=== PATIENT | male | born 1970 | race Caucasian/White ===

== ENCOUNTER 2017-06-11 14:58 | Inpatient (IN) | payer MEDICARE, MEDICAID ==
[~2017-06-11] VITALS: Ht 165.1 cm; Wt 107.4 kg
[2017-06-11] MEDS ORDERED: LEVOFLOXACIN 250MG 50 ML IV ONE (16:00)
[2017-06-11] MEDS ORDERED: MORPHINE SULFATE 4 MG/ML SYR/VIAL IV PRN (16:00)
[2017-06-11] MEDS ORDERED: B-COMPLEX W/ C & FOLIC ACID(NEPHROVITE TAB) PO ONE (16:00)
[2017-06-11] MEDS ORDERED: NITROGLYCERIN 0.4 MG SL TAB SL PRN (16:00)
[2017-06-11] MEDS ORDERED: ONDANSETRON HCL 4 MG/2 ML VIAL IV PRN (16:00)
[2017-06-11 16:19] LABS: Basophils # (auto) 0.1 uL; Eosinophils # (auto) 0.6 uL; Eosinophils % (auto) 8.8 % (0.0-7.0); Neutrophils # (auto) 3.6 uL; White Blood Cell 6.3 10^3/uL (4.4-10.8)
[2017-06-11 16:21] LABS: Hematocrit 23.7 % (41.0-53.0); Hemoglobin 7.7 g/dL (13.5-17.5); Lymphocytes # (auto) 1.2 uL; Lymphocytes % (auto) 18.9 % (10.0-50.0); Mean Corpuscular Hemoglobin 31.3 pg (28.0-32.0); Mean Corpuscular Hgb Conc. 32.5 g/dL (32.0-36.0); Mean Corpuscular Volume 96.2 fL (80.0-100.0); Monocytes # (auto) 0.8 uL; Neutrophils % (auto) 57.3 % (37.0-80.0); Platelet Count (auto) 353 10^3/uL (140-450); Red Blood Cells 2.46 10^6/uL (4.5-5.90); Red Cell Distribution Width 18.2 % (11.8-14.3)
[2017-06-11 16:28] LABS: Albumin 2.2 g/dL (3.4-5.0); Magnesium 2.2 mg/dL (1.6-2.6)
[2017-06-11 16:36] LABS: BUN/Creatinine Ratio 8.2; Bilirubin, Total 0.4 mg/dL (0.2-1.0); Total Protein 7.1 g/dL (6.4-8.2)
[2017-06-11 16:44] LABS: Potassium 6.2 mmol/L (3.5-5.1)
[2017-06-11 16:49] LABS: Hepatitis B Surface Antigen Negative (Negative)
[2017-06-11] MEDS ORDERED: SODIUM BICARBONATE 8.4 % INJ 50ML VIAL IV ONE (17:00)
[2017-06-11] MEDS ORDERED: CALCIUM GLUC 4.65meq/50ml D5AE 50 ML IV ONE (17:00)
[2017-06-11] MEDS ORDERED: InsuLIN REG 1unit/0.01ml Soln (100units/ml) IV ONE (17:00)
[2017-06-11] MEDS ORDERED: DEXTROSE (50%) 50ML SYRG IV ONE (17:00)
[2017-06-11 17:17] LABS: Hepatitis B Core IgM Negative; Hepatitis C Antibody Negative (Negative)
[2017-06-11 17:19] LABS: Hepatitis A Ab IgM Negative
[2017-06-11] MEDS ORDERED: EPOETIN ALFA 10,000 UNIT/1 ML VIAL IV ONE (18:15)
[2017-06-11] MEDS: CALCIUM ACETATE 667 MG CAP PO SCH (18:29)
[2017-06-11 18:45] VITALS: BP 139/56
[2017-06-11 19:45] VITALS: BP 121/78
[2017-06-11 21:37] VITALS: BP 100/59
[2017-06-11] MEDS: METOPROLOL TARTRATE 50 MG TAB PO SCH (22:00)
[2017-06-12] MEDS ORDERED: traZODone HCL 50 MG TAB PO ONE (00:30)
[2017-06-12 04:52] VITALS: BP 112/53
[2017-06-12 06:26] LABS: Basophils # (auto) 0.1 uL; Eosinophils # (auto) 0.4 uL; Hemoglobin 7.4 g/dL (13.5-17.5); Lymphocytes # (auto) 1.1 uL; Mean Corpuscular Hemoglobin 31.8 pg (28.0-32.0); Mean Corpuscular Hgb Conc. 33.2 g/dL (32.0-36.0); Neutrophils # (auto) 2.5 uL; Nucleated Red Blood Cells % 0.1 %; White Blood Cell 4.8 10^3/uL (4.4-10.8)
[2017-06-12 06:28] LABS: Basophils % (auto) 1.9 % (0.0-2.0); Eosinophils % (auto) 8.1 % (0.0-7.0); Hematocrit 22.3 % (41.0-53.0); Lymphocytes % (auto) 23.8 % (10.0-50.0); Mean Corpuscular Volume 95.7 fL (80.0-100.0); Monocytes # (auto) 0.6 uL; Monocytes % (auto) 13.3 % (0.0-12.0); Neutrophils % (auto) 52.9 % (37.0-80.0); Platelet Count (auto) 318 10^3/uL (140-450); Red Blood Cells 2.33 10^6/uL (4.5-5.90); Red Cell Distribution Width 17.6 % (11.8-14.3)
[2017-06-12 06:40] LABS: BUN/Creatinine Ratio 7.6; Calcium 9.1 mg/dL (8.5-10.1)
[2017-06-12 06:44] LABS: % Iron Saturation 21.7 % (20-55)
[2017-06-12] MEDS ORDERED: NEPVITT PO (07:51)
[2017-06-12] MEDS ORDERED: TADA5TAB11 PO (07:51)
[2017-06-12] MEDS ORDERED: TRAZ100T2 PO (07:51)
[2017-06-12] MEDS ORDERED: FERR1TAB17 PO (07:51)
[2017-06-12] MEDS ORDERED: SEVE800T8 PO (07:51)
[2017-06-12] MEDS ORDERED: CINA90TA PO (07:51)
[2017-06-12] MEDS ORDERED: ERGO1CAP23 PO (07:51)
[2017-06-12] MEDS ORDERED: METO25TA5 PO (07:51)
[2017-06-12 08:27] VITALS: BP 122/65
[2017-06-12] MEDS: CALCIUM ACETATE 667 MG CAP PO SCH ×3 (09:23→18:20)
[2017-06-12] MEDS: MORPHINE SULFATE 4 MG/ML SYR/VIAL IV PRN ×3 (09:41→22:04)
[2017-06-12] MEDS: LEVOFLOXACIN 250MG 50 ML IV SCH (11:08)
[2017-06-12] MEDS: FOLIC ACID 1 MG TAB PO SCH (11:08)
[2017-06-12] MEDS: B-COMPLEX W/ C & FOLIC ACID(NEPHROVITE TAB) PO SCH (11:09)
[2017-06-12] MEDS: METOPROLOL TARTRATE 50 MG TAB PO SCH ×2 (11:09→22:00)
[2017-06-12] MEDS: PANTOPRAZOLE 40 MG TAB PO SCH (11:10)
[2017-06-12] MEDS ORDERED: SODIUM CHL 0.9% 1000 ML BAG XX ONE (12:15)
[2017-06-12] MEDS ORDERED: EPOETIN ALFA 10,000 UNIT/1 ML VIAL IV ONE (12:15)
[2017-06-12 12:22] VITALS: BP 99/58
[2017-06-12] MEDS: HYDROcodone-ACET 5/325MG TAB PO PRN (13:08)
[2017-06-12 16:59] VITALS: BP 90/31
[2017-06-12 22:00] VITALS: BP 101/47
[2017-06-13 05:00] VITALS: BP 95/54
[2017-06-13 08:00] VITALS: BP 101/64
[2017-06-13] MEDS: MORPHINE SULFATE 4 MG/ML SYR/VIAL IV PRN ×3 (08:42→20:20)
[2017-06-13] MEDS: CALCIUM ACETATE 667 MG CAP PO SCH ×3 (08:42→18:43)
[2017-06-13 09:00] VITALS: BP 101/64
[2017-06-13] MEDS: METOPROLOL TARTRATE 50 MG TAB PO SCH ×2 (10:00→21:59)
[2017-06-13] MEDS: LEVOFLOXACIN 250MG 50 ML IV SCH (11:48)
[2017-06-13] MEDS: FOLIC ACID 1 MG TAB PO SCH (11:48)
[2017-06-13] MEDS: PANTOPRAZOLE 40 MG TAB PO SCH (11:49)
[2017-06-13] MEDS: B-COMPLEX W/ C & FOLIC ACID(NEPHROVITE TAB) PO SCH (11:49)
[2017-06-13 12:25] LABS: INR 0.95 (0.9-1.15); Partial Thromboplastin Time 30.5 sec (22.64-33.71); Prothrombin Time 10.4 sec (9.37-12.3)
[2017-06-13 13:00] VITALS: BP 105/55
[2017-06-13] MEDS: BOOST PLUS 8 ounce PO SCH ×2 (14:15→18:44)
[2017-06-13 17:00] VITALS: BP 118/69
[2017-06-13 22:00] VITALS: BP 113/73
[2017-06-13] MEDS ORDERED: traZODone HCL 50 MG TAB PO ONE (23:30)
[2017-06-14] MEDS: MORPHINE SULFATE 4 MG/ML SYR/VIAL IV PRN ×3 (03:51→21:52)
[2017-06-14 05:51] VITALS: BP 90/50
[2017-06-14 07:45] LABS: Basophils # (auto) 0.1 uL; Hemoglobin 7.6 g/dL (13.5-17.5); Neutrophils # (auto) 3.5 uL; Nucleated Red Blood Cells % 0.1 %; White Blood Cell 6.4 10^3/uL (4.4-10.8)
[2017-06-14 07:48] LABS: Basophils % (auto) 1.2 % (0.0-2.0); Eosinophils # (auto) 0.5 uL; Hematocrit 22.9 % (41.0-53.0); Lymphocytes # (auto) 1.6 uL; Lymphocytes % (auto) 24.9 % (10.0-50.0); Mean Corpuscular Hemoglobin 31.8 pg (28.0-32.0); Mean Corpuscular Hgb Conc. 33.2 g/dL (32.0-36.0); Mean Corpuscular Volume 95.9 fL (80.0-100.0); Monocytes # (auto) 0.7 uL; Monocytes % (auto) 10.7 % (0.0-12.0); Neutrophils % (auto) 55.2 % (37.0-80.0); Platelet Count (auto) 327 10^3/uL (140-450); Red Blood Cells 2.39 10^6/uL (4.5-5.90)
[2017-06-14 08:00] VITALS: BP 89/40
[2017-06-14] MEDS: BOOST PLUS 8 ounce PO SCH ×2 (08:00→12:00)
[2017-06-14] MEDS: CALCIUM ACETATE 667 MG CAP PO SCH ×3 (08:00→18:03)
[2017-06-14 08:01] LABS: BUN/Creatinine Ratio 7.4; Calcium 8.1 mg/dL (8.5-10.1)
[2017-06-14 08:04] LABS: Potassium 5.7 mmol/L (3.5-5.1)
[2017-06-14] MEDS ORDERED: EPOETIN ALFA 10,000 UNIT/1 ML VIAL IV ONE (08:15)
[2017-06-14] MEDS ORDERED: diphenhdrAMINE HCL 50 MG/1 ML VL IV PRN (08:15)
[2017-06-14 09:00] VITALS: BP 72/31
[2017-06-14] MEDS: LEVOFLOXACIN 250MG 50 ML IV SCH (10:31)
[2017-06-14] MEDS: B-COMPLEX W/ C & FOLIC ACID(NEPHROVITE TAB) PO SCH (10:31)
[2017-06-14] MEDS: PANTOPRAZOLE 40 MG TAB PO SCH (10:32)
[2017-06-14] MEDS: FOLIC ACID 1 MG TAB PO SCH (10:32)
[2017-06-14] MEDS ORDERED: cefTRIAXone 1GM/10ml IVPUSH 10 ML IV ONE (11:45)
[2017-06-14 13:00] VITALS: BP 91/41
[2017-06-14] MEDS: CLINDAMYCIN 600MG IV 50 ML IV SCH ×2 (14:51→21:52)
[2017-06-14 17:00] VITALS: BP 86/40
[2017-06-14] MEDS: HYDROcodone-ACET 5/325MG TAB PO PRN (19:13)
[2017-06-14 22:00] VITALS: BP 91/42
[2017-06-14] MEDS ORDERED: ALBUMIN 25% 100 ML IV ONE (22:45)
[2017-06-15] MEDS: MORPHINE SULFATE 4 MG/ML SYR/VIAL IV PRN ×4 (04:16→22:54)
[2017-06-15 05:00] VITALS: BP 121/67
[2017-06-15] MEDS: CLINDAMYCIN 600MG IV 50 ML IV SCH ×3 (05:31→21:27)
[2017-06-15] MEDS ORDERED: ALBUMIN 5% 50 ML IV ONE (06:00)
[2017-06-15 06:26] LABS: Basophils # (auto) 0.1 uL; Eosinophils # (auto) 0.5 uL; Eosinophils % (auto) 8.4 % (0.0-7.0); Neutrophils # (auto) 2.9 uL; Neutrophils % (auto) 49.5 % (37.0-80.0); White Blood Cell 5.8 10^3/uL (4.4-10.8)
[2017-06-15 06:29] LABS: Basophils % (auto) 1.2 % (0.0-2.0); Hematocrit 21.6 % (41.0-53.0); Lymphocytes # (auto) 1.6 uL; Lymphocytes % (auto) 27.9 % (10.0-50.0); Mean Corpuscular Hemoglobin 31.9 pg (28.0-32.0); Mean Corpuscular Hgb Conc. 32.3 g/dL (32.0-36.0); Mean Corpuscular Volume 98.8 fL (80.0-100.0); Monocytes # (auto) 0.8 uL; Nucleated Red Blood Cells % 0.3 %; Platelet Count (auto) 271 10^3/uL (140-450); Red Blood Cells 2.19 10^6/uL (4.5-5.90); Red Cell Distribution Width 18.3 % (11.8-14.3)
[2017-06-15 06:42] LABS: Calcium 8.7 mg/dL (8.5-10.1)
[2017-06-15 08:00] VITALS: BP 106/48
[2017-06-15] MEDS: CALCIUM ACETATE 667 MG CAP PO SCH ×3 (08:29→18:46)
[2017-06-15] MEDS: cefTRIAXone 1GM/10ml IVPUSH 10 ML IV SCH (08:31)
[2017-06-15] MEDS: FOLIC ACID 1 MG TAB PO SCH (09:32)
[2017-06-15] MEDS: PANTOPRAZOLE 40 MG TAB PO SCH (09:33)
[2017-06-15] MEDS: B-COMPLEX W/ C & FOLIC ACID(NEPHROVITE TAB) PO SCH (09:33)
[2017-06-15] MEDS ORDERED: BUMETANIDE (0.25 MG/ML) INJ 10ML IV ONE (12:00)
[2017-06-15 13:00] VITALS: BP 108/54
[2017-06-15 16:13] VITALS: BP 93/24
[2017-06-15] MEDS: BUMETANIDE (0.25 MG/ML) INJ 10ML IV SCH (18:45)
[2017-06-15] MEDS: PRO-STAT 64 30ML PO SCH (18:46)
[2017-06-15] MEDS: HYDROcodone-ACET 5/325MG TAB PO PRN (18:46)
[2017-06-15 22:00] VITALS: BP 109/64
[2017-06-16] VITALS (9 sets, daily range): BP systolic 106–136; BP diastolic 54–80
[2017-06-16] MEDS ORDERED: TEMAZEPAM 15 MG CAP PO ONE (00:09)
[2017-06-16] MEDS: MORPHINE SULFATE 4 MG/ML SYR/VIAL IV PRN ×4 (04:38→21:56)
[2017-06-16] MEDS: CLINDAMYCIN 600MG IV 50 ML IV SCH ×3 (05:54→21:55)
[2017-06-16] MEDS: BUMETANIDE (0.25 MG/ML) INJ 10ML IV SCH ×3 (05:54→17:51)
[2017-06-16] MEDS ORDERED: EPOETIN ALFA 10,000 UNIT/1 ML VIAL IV ONE (06:30)
[2017-06-16] MEDS ORDERED: SODIUM CHL 0.9% 1000 ML BAG XX ONE (06:30)
[2017-06-16 07:11] LABS: Hemoglobin 7.8 g/dL (13.5-17.5); Red Blood Cells 2.46 10^6/uL (4.5-5.90)
[2017-06-16 07:14] LABS: Hematocrit 23.9 % (41.0-53.0); Mean Corpuscular Hemoglobin 31.6 pg (28.0-32.0); Mean Corpuscular Hgb Conc. 32.6 g/dL (32.0-36.0); Platelet Count (auto) 308 10^3/uL (140-450); Red Cell Distribution Width 18.9 % (11.8-14.3)
[2017-06-16 07:15] LABS: Band Neutrophils % (manual) 0; Basophils % (manual) 0 (0.0-2.0); Blast Cells 0; Metamyelocytes % 0; Myelocytes % 0; Promyelocytes % 0; Reactive Lymphocytes 0
[2017-06-16 07:29] LABS: BUN/Creatinine Ratio 6.7; Calcium 9.1 mg/dL (8.5-10.1); Potassium 5.5 mmol/L (3.5-5.1)
[2017-06-16] MEDS: CALCIUM ACETATE 667 MG CAP PO SCH ×3 (08:00→17:51)
[2017-06-16] MEDS: PRO-STAT 64 30ML PO SCH (08:00)
[2017-06-16 08:07] LABS: Eosinophils % (manual) 9 (0-7); Lymphocytes % (manual) 20 (10.0-50.0); Monocytes % (manual) 10 (0-12)
[2017-06-16] MEDS: cefTRIAXone 1GM/10ml IVPUSH 10 ML IV SCH (10:40)
[2017-06-16] MEDS: B-COMPLEX W/ C & FOLIC ACID(NEPHROVITE TAB) PO SCH (10:40)
[2017-06-16] MEDS: PANTOPRAZOLE 40 MG TAB PO SCH (10:41)
[2017-06-16] MEDS: FOLIC ACID 1 MG TAB PO SCH (10:41)
[2017-06-16] MEDS ORDERED: ENOXAPARIN SOD 40 MG/0.4 ML SYRINGE SC SCH (13:00)
[2017-06-16] MEDS: HEPARIN SODIUM (PORCINE) 5000 UNITS/ML 1ML VIAL SC SCH ×2 (16:17→21:55)
[2017-06-16] MEDS: HYDROcodone-ACET 5/325MG TAB PO PRN (17:42)
[2017-06-17] MEDS: PRO-STAT 64 30ML GT SCH ×3 (01:10→21:16)
[2017-06-17] MEDS: HYDROcodone-ACET 5/325MG TAB PO PRN ×3 (01:15→13:40)
[2017-06-17 04:00] VITALS: BP 120/76
[2017-06-17] MEDS: MORPHINE SULFATE 4 MG/ML SYR/VIAL IV PRN ×4 (04:01→22:22)
[2017-06-17] MEDS: CLINDAMYCIN 600MG IV 50 ML IV SCH ×3 (06:18→22:21)
[2017-06-17] MEDS: BUMETANIDE (0.25 MG/ML) INJ 10ML IV SCH ×2 (06:20→18:18)
[2017-06-17 09:00] VITALS: BP 129/60
[2017-06-17] MEDS: B-COMPLEX W/ C & FOLIC ACID(NEPHROVITE TAB) PO SCH (09:03)
[2017-06-17] MEDS: cefTRIAXone 1GM/10ml IVPUSH 10 ML IV SCH (09:03)
[2017-06-17] MEDS: CALCIUM ACETATE 667 MG CAP PO SCH ×3 (09:03→18:19)
[2017-06-17] MEDS: FOLIC ACID 1 MG TAB PO SCH (09:04)
[2017-06-17] MEDS: PANTOPRAZOLE 40 MG TAB PO SCH (09:04)
[2017-06-17] MEDS: HEPARIN SODIUM (PORCINE) 5000 UNITS/ML 1ML VIAL SC SCH ×2 (10:08→22:22)
[2017-06-17 13:00] VITALS: BP 114/65
[2017-06-17 17:00] VITALS: BP 122/59
[2017-06-17] MEDS: TEMAZEPAM 15 MG CAP PO PRN (22:32)
[2017-06-17 22:42] VITALS: BP 115/58
[2017-06-18] MEDS: HYDROcodone-ACET 5/325MG TAB PO PRN ×2 (05:31→23:24)
[2017-06-18 05:32] VITALS: BP 125/63
[2017-06-18] MEDS: BUMETANIDE (0.25 MG/ML) INJ 10ML IV SCH ×2 (05:32→18:00)
[2017-06-18] MEDS: CLINDAMYCIN 600MG IV 50 ML IV SCH ×3 (05:32→22:40)
[2017-06-18 06:44] LABS: Basophils # (auto) 0.1 uL; Basophils % (auto) 1.2 % (0.0-2.0); Eosinophils # (auto) 0.6 uL; Eosinophils % (auto) 10.9 % (0.0-7.0); Hematocrit 24.4 % (41.0-53.0); Hemoglobin 7.9 g/dL (13.5-17.5); Lymphocytes # (auto) 1.3 uL; Lymphocytes % (auto) 23.6 % (10.0-50.0); Mean Corpuscular Hemoglobin 31.4 pg (28.0-32.0); Mean Corpuscular Hgb Conc. 32.3 g/dL (32.0-36.0); Mean Corpuscular Volume 97.2 fL (80.0-100.0); Monocytes # (auto) 0.8 uL; Monocytes % (auto) 14.5 % (0.0-12.0); Neutrophils # (auto) 2.8 uL; Neutrophils % (auto) 49.8 % (37.0-80.0); Nucleated Red Blood Cells % 0.2 %; Platelet Count (auto) 283 10^3/uL (140-450); Red Blood Cells 2.51 10^6/uL (4.5-5.90); Red Cell Distribution Width 18.7 % (11.8-14.3); White Blood Cell 5.5 10^3/uL (4.4-10.8)
[2017-06-18 07:09] LABS: Potassium 5.4 mmol/L (3.5-5.1)
[2017-06-18 07:17] LABS: Albumin 1.9 g/dL (3.4-5.0); BUN/Creatinine Ratio 6.6; Calcium 9.1 mg/dL (8.5-10.1)
[2017-06-18 07:28] LABS: Bilirubin, Total 0.3 mg/dL (0.2-1.0); Total Protein 6.2 g/dL (6.4-8.2)
[2017-06-18] MEDS ORDERED: EPOETIN ALFA 2,000 UNIT/1 ML VIAL IV ONE (08:00)
[2017-06-18] MEDS ORDERED: SODIUM CHL 0.9% 1000 ML BAG XX ONE (08:00)
[2017-06-18] MEDS ORDERED: EPOETIN ALFA 3,000 UNIT/1 ML VIAL IV ONE (08:00)
[2017-06-18] MEDS ORDERED: EPOETIN ALFA 10,000 UNIT/1 ML VIAL IV ONE (08:00)
[2017-06-18 08:48] VITALS: BP 105/48
[2017-06-18] MEDS: cefTRIAXone 1GM/10ml IVPUSH 10 ML IV SCH (09:00)
[2017-06-18] MEDS: PRO-STAT 64 30ML GT SCH ×2 (10:00→22:41)
[2017-06-18] MEDS: HEPARIN SODIUM (PORCINE) 5000 UNITS/ML 1ML VIAL SC SCH ×2 (10:00→22:41)
[2017-06-18] MEDS: FOLIC ACID 1 MG TAB PO SCH (11:43)
[2017-06-18] MEDS: CALCIUM ACETATE 667 MG CAP PO SCH ×3 (11:43→18:00)
[2017-06-18] MEDS: PANTOPRAZOLE 40 MG TAB PO SCH (11:44)
[2017-06-18] MEDS: MORPHINE SULFATE 4 MG/ML SYR/VIAL IV PRN ×2 (11:44→20:13)
[2017-06-18] MEDS: B-COMPLEX W/ C & FOLIC ACID(NEPHROVITE TAB) PO SCH (11:44)
[2017-06-18 12:21] VITALS: BP 100/54
[2017-06-18] MEDS ORDERED: diphenhdrAMINE HCL 50 MG/1 ML VL IM ONE (16:30)
[2017-06-18 16:43] VITALS: BP 165/88
[2017-06-18] MEDS ORDERED: diphenhdrAMINE HCL 50 MG/1 ML VL IM PRN (17:15)
[2017-06-18 18:45] VITALS: BP 100/54
[2017-06-18 21:22] VITALS: BP 124/59
[2017-06-18] MEDS: TEMAZEPAM 15 MG CAP PO PRN (23:25)
[2017-06-19] MEDS: MORPHINE SULFATE 4 MG/ML SYR/VIAL IV PRN ×5 (01:44→22:00)
[2017-06-19 05:40] VITALS: BP 93/51
[2017-06-19] MEDS: BUMETANIDE (0.25 MG/ML) INJ 10ML IV SCH ×2 (05:41→18:11)
[2017-06-19] MEDS: CLINDAMYCIN 600MG IV 50 ML IV SCH ×3 (05:42→22:03)
[2017-06-19] MEDS: HYDROcodone-ACET 5/325MG TAB PO PRN ×2 (05:42→18:44)
[2017-06-19 06:40] LABS: Basophils # (auto) 0.1 uL; Eosinophils # (auto) 0.5 uL; Hematocrit 22.5 % (41.0-53.0); Monocytes # (auto) 0.8 uL; Neutrophils # (auto) 2.5 uL; Nucleated Red Blood Cells % 0.4 %
[2017-06-19 06:43] LABS: Basophils % (auto) 1.8 % (0.0-2.0); Eosinophils % (auto) 9.3 % (0.0-7.0); Hemoglobin 7.2 g/dL (13.5-17.5); Lymphocytes # (auto) 1.3 uL; Lymphocytes % (auto) 25.2 % (10.0-50.0); Mean Corpuscular Hemoglobin 31.5 pg (28.0-32.0); Mean Corpuscular Hgb Conc. 32.2 g/dL (32.0-36.0); Mean Corpuscular Volume 97.8 fL (80.0-100.0); Monocytes % (auto) 15.8 % (0.0-12.0); Neutrophils % (auto) 47.9 % (37.0-80.0); Platelet Count (auto) 249 10^3/uL (140-450); Red Cell Distribution Width 18.8 % (11.8-14.3); White Blood Cell 5.3 10^3/uL (4.4-10.8)
[2017-06-19] MEDS: CALCIUM ACETATE 667 MG CAP PO SCH ×3 (08:00→18:11)
[2017-06-19 08:43] VITALS: BP 114/84
[2017-06-19] MEDS: PRO-STAT 64 30ML GT SCH ×2 (10:00→22:00)
[2017-06-19] MEDS: cefTRIAXone 1GM/10ml IVPUSH 10 ML IV SCH (10:02)
[2017-06-19] MEDS: FOLIC ACID 1 MG TAB PO SCH (10:03)
[2017-06-19] MEDS: B-COMPLEX W/ C & FOLIC ACID(NEPHROVITE TAB) PO SCH (10:05)
[2017-06-19] MEDS: PANTOPRAZOLE 40 MG TAB PO SCH (10:05)
[2017-06-19] MEDS: HEPARIN SODIUM (PORCINE) 5000 UNITS/ML 1ML VIAL SC SCH ×2 (10:06→22:04)
[2017-06-19 13:14] VITALS: BP 122/74
[2017-06-19] MEDS ORDERED: EPOETIN ALFA 10,000 UNIT/1 ML VIAL IV ONE (13:30)
[2017-06-19] MEDS ORDERED: SODIUM CHL 0.9% 1000 ML BAG XX ONE (13:30)
[2017-06-19] MEDS ORDERED: LIDOCAINE 1% HCL (LOCAL ANESTH.) INJ 20ML MDV ONE (13:59)
[2017-06-19 17:04] VITALS: BP 127/65
[2017-06-19 21:47] VITALS: BP 119/63
[2017-06-19] MEDS: TEMAZEPAM 15 MG CAP PO PRN (22:05)
[2017-06-20] MEDS: MORPHINE SULFATE 4 MG/ML SYR/VIAL IV PRN ×3 (02:27→18:55)
[2017-06-20 04:32] VITALS: BP 102/58
[2017-06-20] MEDS: BUMETANIDE (0.25 MG/ML) INJ 10ML IV SCH ×2 (06:07→18:00)
[2017-06-20] MEDS: CLINDAMYCIN 600MG IV 50 ML IV SCH ×3 (06:08→21:34)
[2017-06-20] MEDS: CALCIUM ACETATE 667 MG CAP PO SCH ×3 (08:00→18:00)
[2017-06-20 09:00] VITALS: BP 108/62
[2017-06-20] MEDS: cefTRIAXone 1GM/10ml IVPUSH 10 ML IV SCH (09:51)
[2017-06-20] MEDS: HEPARIN SODIUM (PORCINE) 5000 UNITS/ML 1ML VIAL SC SCH (10:00)
[2017-06-20] MEDS: PANTOPRAZOLE 40 MG TAB PO SCH (10:00)
[2017-06-20] MEDS: B-COMPLEX W/ C & FOLIC ACID(NEPHROVITE TAB) PO SCH (10:00)
[2017-06-20] MEDS: FOLIC ACID 1 MG TAB PO SCH (10:00)
[2017-06-20] MEDS: PRO-STAT 64 30ML GT SCH ×2 (10:00→21:35)
[2017-06-20] MEDS ORDERED: IOHEXOL 350 MG/ML 100ML IJ ONE (11:12)
[2017-06-20] MEDS ORDERED: LIDOCAINE 2%HCL (LOCAL ANESTH.) INJ 20ML MDV ONE (11:12)
[2017-06-20] MEDS ORDERED: LIDOCAINE VISCOUS 2% 15ML UD PO ONE (12:00)
[2017-06-20] MEDS ORDERED: MIDAZOLAM HCL 1MG/1ML-2 ML VIAL IV ONE (12:00)
[2017-06-20] MEDS ORDERED: fentaNYL CITRATE 100 MCG/2 ML VL IV ONE (12:00)
[2017-06-20] MEDS ORDERED: ALBUTEROL SULF 2.5 MG/0.5ML(0.5%) NEB SOLN NEB ONE (14:15)
[2017-06-20] MEDS ORDERED: IPRATROPIUM BROM 0.5 MG/2.5ML INH SOL NEB ONE (14:15)
[2017-06-20] MEDS ORDERED: ANGIOMAX 250 MG VIAL IV ONE (14:33)
[2017-06-20] MEDS ORDERED: fentaNYL CITRATE 100 MCG/2 ML VL ONE (14:33)
[2017-06-20] MEDS ORDERED: MIDAZOLAM HCL 1MG/1ML-2 ML VIAL ONE (14:33)
[2017-06-20] MEDS ORDERED: SODIUM CHL 0.9% 0 ML ONE (14:34)
[2017-06-20] MEDS ORDERED: VERAPAMIL 2.5MG/ML INJ 2ML VIAL IV ONE (15:05)
[2017-06-20 17:17] VITALS: BP 118/68
[2017-06-20 20:55] VITALS: BP 93/34
[2017-06-20] MEDS: HYDROcodone-ACET 5/325MG TAB PO PRN (21:34)
[2017-06-20 21:53] VITALS: BP 93/34
[2017-06-21] MEDS: MORPHINE SULFATE 4 MG/ML SYR/VIAL IV PRN ×3 (00:09→12:50)
[2017-06-21] MEDS: TEMAZEPAM 15 MG CAP PO PRN (00:09)
[2017-06-21] MEDS: HEPARIN SODIUM (PORCINE) 5000 UNITS/ML 1ML VIAL SC SCH ×2 (00:42→10:00)
[2017-06-21 05:24] VITALS: BP 107/50
[2017-06-21] MEDS: BUMETANIDE (0.25 MG/ML) INJ 10ML IV SCH (06:05)
[2017-06-21] MEDS: CLINDAMYCIN 600MG IV 50 ML IV SCH ×2 (06:06→14:28)
[2017-06-21 07:12] LABS: BUN/Creatinine Ratio 5.2; Calcium 8.9 mg/dL (8.5-10.1); Potassium 4.5 mmol/L (3.5-5.1)
[2017-06-21 07:13] LABS: Basophils # (auto) 0.1 uL; Eosinophils # (auto) 0.6 uL; Lymphocytes # (auto) 1.2 uL; Monocytes # (auto) 0.7 uL; Neutrophils # (auto) 2.9 uL; Nucleated Red Blood Cells % 0.1 %; Red Cell Distribution Width 19.5 % (11.8-14.3); White Blood Cell 5.5 10^3/uL (4.4-10.8)
[2017-06-21 07:15] LABS: Basophils % (auto) 1.8 % (0.0-2.0); Eosinophils % (auto) 10.5 % (0.0-7.0); Hematocrit 24.7 % (41.0-53.0); Hemoglobin 7.9 g/dL (13.5-17.5); Mean Corpuscular Hemoglobin 31.7 pg (28.0-32.0); Mean Corpuscular Hgb Conc. 32.2 g/dL (32.0-36.0); Mean Corpuscular Volume 98.5 fL (80.0-100.0); Monocytes % (auto) 13.3 % (0.0-12.0); Neutrophils % (auto) 52.4 % (37.0-80.0); Platelet Count (auto) 240 10^3/uL (140-450)
[2017-06-21] MEDS: CALCIUM ACETATE 667 MG CAP PO SCH ×2 (08:20→14:28)
[2017-06-21] MEDS: HYDROcodone-ACET 5/325MG TAB PO PRN ×2 (08:20→14:24)
[2017-06-21 09:00] VITALS: BP 127/74
[2017-06-21] MEDS: cefTRIAXone 1GM/10ml IVPUSH 10 ML IV SCH (09:56)
[2017-06-21] MEDS: FOLIC ACID 1 MG TAB PO SCH (10:06)
[2017-06-21] MEDS: PANTOPRAZOLE 40 MG TAB PO SCH (10:06)
[2017-06-21] MEDS: PRO-STAT 64 30ML GT SCH (10:06)
[2017-06-21] MEDS: B-COMPLEX W/ C & FOLIC ACID(NEPHROVITE TAB) PO SCH (10:06)
[2017-06-21 13:00] VITALS: BP 104/57
[2017-06-21 13:44] VITALS: BP 107/50
[2017-06-21] MEDS ORDERED: CARISOPRODOL 350 MG TAB PO ONE (14:30)
== END 2017-06-21 16:30 | disposition home or self-care (01) | DRG 286 ==
LOC: ER 14:58 → TELE 14:59 → TELE-EAST 18:01 → EAST 06-18 04:33
PROVIDERS: ADMIT Internal Medicine; ATTEND Internal Medicine
PROC: 5A1D70Z Performance of Urinary Filtration, Intermittent, Less than 6 Hours Per Day (ICD-10-PCS; 2017-06-11)
PROC: 0W9G30Z Drainage of Peritoneal Cavity with Drainage Device, Percutaneous Approach (ICD-10-PCS; 2017-06-13)
PROC: 5A1D70Z Performance of Urinary Filtration, Intermittent, Less than 6 Hours Per Day (ICD-10-PCS; 2017-06-14)
PROC: 5A1D70Z Performance of Urinary Filtration, Intermittent, Less than 6 Hours Per Day (ICD-10-PCS; 2017-06-16)
PROC: 30233N1 Transfusion of Nonautologous Red Blood Cells into Peripheral Vein, Percutaneous Approach (ICD-10-PCS; 2017-06-16)
PROC: 0W9G30Z Drainage of Peritoneal Cavity with Drainage Device, Percutaneous Approach (ICD-10-PCS; 2017-06-19)
PROC: 4A023N8 Measurement of Cardiac Sampling and Pressure, Bilateral, Percutaneous Approach (ICD-10-PCS; principal; 2017-06-20)
PROC: B2111ZZ Fluoroscopy of Multiple Coronary Arteries using Low Osmolar Contrast (ICD-10-PCS; 2017-06-20)
PROC: B2151ZZ Fluoroscopy of Left Heart using Low Osmolar Contrast (ICD-10-PCS; 2017-06-20)
PROC: 5A1D70Z Performance of Urinary Filtration, Intermittent, Less than 6 Hours Per Day (ICD-10-PCS; 2017-06-20)
DX: I13.2 Hypertensive heart and chronic kidney disease with heart failure and with stage 5 chronic kidney disease, or end stage renal disease (principal); I50.43 Acute on chronic combined systolic (congestive) and diastolic (congestive) heart failure; J96.00 Acute respiratory failure, unspecified whether with hypoxia or hypercapnia; E43 Unspecified severe protein-calorie malnutrition; G82.20 Paraplegia, unspecified; I27.20 Pulmonary hypertension, unspecified; I42.0 Dilated cardiomyopathy; E87.5 Hyperkalemia; R18.8 Other ascites; E87.70 Fluid overload, unspecified; N18.6 End stage renal disease; D63.8 Anemia in other chronic diseases classified elsewhere; I48.0 Paroxysmal atrial fibrillation; N49.2 Inflammatory disorders of scrotum; J45.909 Unspecified asthma, uncomplicated; K74.60 Unspecified cirrhosis of liver; Z91.19 Patient's noncompliance with other medical treatment and regimen; Z91.15 Patient's noncompliance with renal dialysis; Z68.39 Body mass index [BMI] 39.0-39.9, adult
CPT/HCPCS: 10022; 36415; 36600; 49083; 71045; 71046; 76700; 76705; 76870; 76942; 78582; 80048; 80053; 80074; 82805; 82962; 83540; 83550; 83605; 83735; 83880; 83986; 84484; 85007; 85018; 85025; 85027; 85610; 85730; 86850; 86900; 86901; 86920; 87040; 87205; 89051; 90935; 93005; 93306; 93312; 93460; 93970; 94640; 94761; 96365; 96375; 97163; 99152; 99291; C1751; J0610; J0885; J1642; J1815; J2001; J2250; J3490; Q4081